=== PATIENT | male | born 1935 | race Caucasian/White ===

== ENCOUNTER 2016-04-11 19:39 | Inpatient (IN) | payer MEDICARE, MEDICAID ==
[~2016-04-11] VITALS: Ht 172.7 cm; Wt 57.2 kg
[2016-04-11 20:10] LABS: BASOPHILS % (AUTO) 0.5 % (0.0-2.0); EOSINOPHILS % (AUTO) 0.2 % (0.0-3.0); LYMPHOCYTES % (AUTO) 11.8 % (20.0-45.0); MEAN CORPUSCULAR HEMOGLOBIN 32.3 PG (27.0-31.0); MEAN CORPUSCULAR HGB CONC 32.8 G/DL (32.0-36.0); MEAN CORPUSCULAR VOLUME 98 FL (80-99); MEAN PLATELET VOLUME 5.6 FL (6.5-10.1); MONOCYTES % (AUTO) 6.3 % (1.0-10.0); NEUTROPHILS % (AUTO) 81.3 % (45.0-75.0); PLATELET COUNT 270 K/UL (150-450); RED BLOOD COUNT 4.25 M/UL (4.70-6.10); RED CELL DISTRIBUTION WIDTH 12.1 % (11.6-14.8); WHITE BLOOD COUNT 11.5 K/UL (4.8-10.8)
[2016-04-11 20:34] LABS: TROPONIN I < 0.30 ng/mL (<=0.30)
[2016-04-11 20:37] LABS: ACETAMINOPHEN < 10 ug/mL (10-30); ALANINE AMINOTRANSFERASE 5 U/L (3-41); ALBUMIN/GLOBULIN RATIO 0.7 (1.0-2.7); ALCOHOL < 10 mg/dL; ANION GAP 17 (5-15); ASPARTATE AMINO TRANSFERASE 28 U/L (5-40); CALCIUM 9.5 mg/dL (8.6-10.2); CARBON DIOXIDE 23 mEQ/L (20-30); CHLORIDE 102 mEQ/L (98-107); CREATININE 1.3 mg/dL (0.7-1.2); HEMOLYSIS 115; POTASSIUM 5.9 mEQ/L (3.4-4.9); SODIUM 142 mEQ/L (135-145); TOTAL PROTEIN 8.9 g/dL (6.6-8.7)
[2016-04-11 20:40] LABS: REFLEX LACTIC ACID YES OR NO YES
--- NOTE | 2016-04-11 21:34 | Emergency Room Report ---
History of Present Illness General Chief Complaint: Altered Level of Consciousness Source: Medical Record, EMS Present Illness HPI Patient had a period of unresponsiveness where he was was unable to speak for about half an hour that occurred on 7 PM tonight. Apparently he has a history of dementia. Usually he is responsive. Glucose in the field was normal. Also he was hypotensive. There is no observed seizure activity at that time. Patient's mentation improved on transport, but still perseveration but verbalizes. Wheelchair bound. H/O schizophrenia and dementia. No other history is available. Allergies: Coded Allergies: UNABLE TO ASSESS (Unverified , 04/11/16) Patient History Limited by: medical condition Past Medical History: see triage record Social History Narrative SNF Nursing Documentation-PMH Past Medical History: No History, Except For Hx COPD: Yes Hx Gastrointestinal Problems: Yes - GERD Hx Dialysis: No - CKD History Of Psychiatric Problem: Yes - Dementia, Parkinson, SCZ Review of Systems All Other Systems: limited Physical Exam Vital Signs Date Time Temp Pulse Resp B/P Pulse Ox O2 Delivery O2 Flow Rate FiO2 04/11/16 19:36 98.1 90 18 123/79 98 Room Air Sp02 EP Interpretation: reviewed, normal General Appearance: thin, Chronically Ill Head: normocephalic Eyes: bilateral eye PERRL, bilateral eye normal inspection ENT: moist mucus membranes - drolling Neck: supple Respiratory: lungs clear, normal breath sounds Cardiovascular #1: regular rate, rhythm Cardiovascular #2: 2+ radial (R) Gastrointestinal: normal inspection, normal bowel sounds, non tender, no mass, non-distended Musculoskeletal: back normal, other - atrophy Neurologic: alert, responsive, DTRs symmetric, sensory intact, motor weakness - bilateral LE, Babinski Psychiatric: depressed affect Skin: normal inspection, warm/dry Medical Decision Making Diagnostic Impression: Primary Impression: Altered level of consciousness Additional Impression: UTI (urinary tract infection) Qualified Codes: N30.00 - Acute cystitis without hematuria ER Course Patient presents with period of decreased responsiveness. Complicated as patient with underlying dementia. DDx: electrolyte abnormality, seizure, occult infection, AMI amongst others. Emergent evaluation with labs, EKG, CT, UA. Treatment with hydration and cardiac monitoring. Labs remarkable for UTI, renal insufficiency, slightly elevated potassium. CT with atrophy. CXR with prior rib fractures. IV hydration, antibiotics initiated. Mentation improved somewhat. Admit tele Dr. Shelton. Laboratory Tests Test 04/11/16 19:52 04/11/16 21:30 04/11/16 21:50 04/11/16 22:00 White Blood Count 11.5 K/UL (4.8-10.8) H Red Blood Count 4.25 M/UL (4.70-6.10) L Hemoglobin 13.7 G/DL (14.2-18.0) L Hematocrit 41.8 % (42.0-52.0) L Mean Corpuscular Volume 98 FL (80-99) Mean Corpuscular Hemoglobin 32.3 PG (27.0-31.0) H Mean Corpuscular Hemoglobin Concent 32.8 G/DL (32.0-36.0) Red Cell Distribution Width 12.1 % (11.6-14.8) Platelet Count 270 K/UL (150-450) Mean Platelet Volume 5.6 FL (6.5-10.1) L Neutrophils (%) (Auto) 81.3 % (45.0-75.0) H Lymphocytes (%) (Auto) 11.8 % (20.0-45.0) L Monocytes (%) (Auto) 6.3 % (1.0-10.0) Eosinophils (%) (Auto) 0.2 % (0.0-3.0) Basophils (%) (Auto) 0.5 % (0.0-2.0) Sodium Level 142 mEQ/L (135-145) Potassium Level 5.9 mEQ/L (3.4-4.9) H Chloride Level 102 mEQ/L (98-107) Carbon Dioxide Level 23 mEQ/L (20-30) Anion Gap 17 (5-15) H Blood Urea Nitrogen 42 mg/dL (7-23) H Creatinine 1.3 mg/dL (0.7-1.2) H Estimate Glomerular Filtration Rate mL/min (>60) Glucose Level 131 mg/dL (74-106) H Lactic Acid Level 2.00 mmol/L (0.66-2.22) 1.90 mmol/L (0.66-2.22) Calcium Level 9.5 mg/dL (8.6-10.2) Total Bilirubin 0.3 mg/dL (0.0-1.2) Aspartate Amino Transferase (AST) 28 U/L (5-40) Alanine Aminotransferase (ALT) 5 U/L (3-41) Alkaline Phosphatase 50 U/L (40-129) Total Creatine Kinase 49 U/L (38-174) Troponin I < 0.30 ng/mL (<=0.30) Total Protein 8.9 g/dL (6.6-8.7) H Albumin 3.7 g/dL (3.5-5.2) Globulin 5.2 g/dL Albumin/Globulin Ratio 0.7 (1.0-2.7) L Salicylates Level < 1 mg/dL (10-30) L Acetaminophen Level < 10 ug/mL (10-30) L Serum Alcohol < 10 mg/dL Ammonia 139 umol/L (16-60) H Urine Color Pale yellow Urine Appearance Cloudy Urine pH 9 (4.5-8.0) Urine Specific [place] 1.015 (1.005-1.035) Urine Protein 3+ (NEGATIVE) H Urine Glucose (UA) Negative (NEGATIVE) Urine Ketones Negative (NEGATIVE) Urine Occult Blood 5+ (NEGATIVE) H Urine Nitrite Negative (NEGATIVE) Urine Bilirubin Negative (NEGATIVE) Urine Urobilinogen Normal MG/DL (0.0-1.0) Urine Leukocyte Esterase 3+ (NEGATIVE) H Urine RBC Tntc /HPF (0 - 0) H Urine WBC Tntc /HPF (0 - 0) H Urine Squamous Epithelial Cells None /LPF (NONE/OCC) Urine Bacteria Many /HPF (NONE) H Urine Opiates Screen Negative (NEGATIVE) Urine Barbiturates Screen Negative (NEGATIVE) Phencyclidine (PCP) Screen Negative (NEGATIVE) Urine Amphetamines Screen Negative (NEGATIVE) Urine Benzodiazepines Screen Negative (NEGATIVE) Urine Cocaine Screen Negative (NEGATIVE) Urine Marijuana (THC) Screen Negative (NEGATIVE) EKG Diagnostic Results Rate: normal Rhythm: NSR ST Segments: no acute changes Rhythm Strip Diag. Results EP Interpretation: yes Rhythm: NSR, no PVC's, no ectopy Chest X-Ray Diagnostic Results EP Interpretation: Yes Findings: no consolidation, no effusion, no pneumothorax, no acute cardiopulmonary disease, other - rib fx R old - lung nodule Number of Views: 1 CT/MRI/US Diagnostic Results CT/MRI/US Diagnostic Results : Imaging Test Ordered: head Impression atrophy IMPRESSION: No evidence of acute intracranial pathology , unchanged. Bilateral cerebral periventricular white matter low attenuation, nonspecific, likely chronic microvascular ischemic in nature Atrophy Status: improved Disposition: ADMITTED INPATIENT Condition: Serious Referrals: NON PHYSICIAN (PCP) Daniel Bella M.D. Apr 11, 2016 21:34
[2016-04-11 22:27] LABS: APPEARANCE,URINE CLOUDY; KETONES,URINE NEGATIVE (NEGATIVE); LEUKOCYTE ESTERASE ,URINE 3+ (NEGATIVE); NITRITE,URINE NEGATIVE (NEGATIVE); PH,URINE 9 (4.5-8.0); PROTEIN,URINE 3+ (NEGATIVE); UROBILINOGEN,URINE NORMAL MG/DL (0.0-1.0)
[2016-04-11 22:44] LABS: BACTERIA,URINE MANY /HPF; RBC,URINE TNTC /HPF (0 - 0); WBC,URINE TNTC /HPF (0 - 0)
[2016-04-11 23:15] VITALS: BP 111/57
[2016-04-11] MEDS ORDERED: cefTRIAXone 1 GM in NS 55 ML IVPB ONE (23:15)
[2016-04-12] VITALS (8 sets, daily range): BP systolic 102–132; BP diastolic 50–83
[2016-04-12] MEDS ORDERED: NS 55 ML IV ONE (00:06)
[2016-04-12] MEDS ORDERED: Tubing IV Secondary IV ONE (00:06)
[2016-04-12] MEDS ORDERED: CRANBERRY400 MG PO (00:24)
[2016-04-12] MEDS ORDERED: TRAMADOL HCL50 MG ORAL (00:24)
[2016-04-12] MEDS ORDERED: ZYRTEC10 MG ORAL (00:24)
[2016-04-12] MEDS ORDERED: DEPAKOTE ER500 MG ORAL (00:24)
[2016-04-12] MEDS ORDERED: SINEMET 25-1001 EAC1 ORAL (00:24)
[2016-04-12] MEDS ORDERED: MILK OF MA400 MG/51 ORAL (00:24)
[2016-04-12] MEDS ORDERED: TYLENOL EXTRA500 MG ORAL (00:24)
[2016-04-12] MEDS ORDERED: Milk of Magnesia 30ml Ud ORAL PRN (04:45)
[2016-04-12] MEDS ORDERED: traMADol 50mg tab ORAL PRN (04:45)
[2016-04-12 08:02] LABS: BASOPHILS % (AUTO) 0.3 % (0.0-2.0); EOSINOPHILS % (AUTO) 0.3 % (0.0-3.0); LYMPHOCYTES % (AUTO) 16.9 % (20.0-45.0); MEAN CORPUSCULAR HEMOGLOBIN 31.9 PG (27.0-31.0); MEAN CORPUSCULAR HGB CONC 32.7 G/DL (32.0-36.0); MEAN CORPUSCULAR VOLUME 98 FL (80-99); MEAN PLATELET VOLUME 6.2 FL (6.5-10.1); MONOCYTES % (AUTO) 11.2 % (1.0-10.0); NEUTROPHILS % (AUTO) 71.3 % (45.0-75.0); PLATELET COUNT 206 K/UL (150-450); RED BLOOD COUNT 3.74 M/UL (4.70-6.10); RED CELL DISTRIBUTION WIDTH 12.1 % (11.6-14.8); WHITE BLOOD COUNT 8.6 K/UL (4.8-10.8)
--- NOTE | 2016-04-12 08:07 | History and Physical Report ---
DATE OF ADMISSION: 04/11/2016 CHIEF COMPLAINT: Altered level of consciousness. History Of Present Illness: This is an 80-year-old male, who is a resident of a [facility]. The patient was transferred to this hospital by paramedics due to altered level of consciousness. The patient is a very poor historian. I was asked to take care of the patient's attending physician, Dr. Gill Saunders to while he is in [place]. PAST MEDICAL HISTORY: 1. Organic brain syndrome. 2. Chronic obstructive pulmonary disease. 3. Recurrent falls. 4. Chronic kidney disease, unspecified. 5. Tachycardia, nonspecific. 6. Anemia, nonspecific. 7. History of schizophrenia. 8. Gastroesophageal reflux disease. 9. Parkinson. 10. Urinary tract infection. HOME MEDICATIONS: Depakote, Tylenol p.r.n., milk of magnesia p.r.n., Sinemet, Ultram p.r.n. and Zyrtec. ALLERGIES: No known drug allergies. SOCIAL HISTORY: Unable to obtain. FAMILY HISTORY: Unable to obtain. REVIEW OF SYSTEMS: Unable to obtain. PHYSICAL EXAMINATION: GENERAL: This is an elderly male, who is in no acute distress. VITAL SIGNS: Blood pressure 127/83, pulse 89, apical, and temperature 97.3 degrees oral. HEENT: The head is normocephalic and atraumatic. Pupils are equal, round, reactive to light and accommodation consensually. NECK: Supple. Trachea is midline. There was no lymphadenopathy or thyromegaly. LUNGS: Clear to auscultation and percussion. HEART: Regular rate and rhythm without rubs, murmurs, or gallops. ABDOMEN: Soft and nontender. Bowel sounds were active. EXTREMITIES: No clubbing, cyanosis, or edema. NEUROLOGIC: The patient is confused. He has increased alpha rigidity in all extremities. There were no lateralizing signs. LABORATORY AND ANCILLARY DATA: CBC shows white count of 11,500. Serum creatinine is 3, sodium 142, potassium 5.9, BUN 42, creatinine 1.3. Lactic acid 2. Ammonia level 139. Urine toxicology screen is negative. Urinalysis too numerous to count red blood cells, too numerous to count white blood cells, and many bacteria. ASSESSMENT: 1. Urinary tract infection.Organic brain syndrome. 2. Chronic obstructive pulmonary disease. 3. Recurrent falls. 4. Chronic kidney disease, unspecified. 5. Tachycardia, nonspecific. 6. Anemia, nonspecific. 7. History of schizophrenia. 8. Gastroesophageal reflux disease. 9. Parkinson. 10. Urinary tract infection. PLAN: 1. Urine culture and sensitivity. 2. IV antibiotics. 3. IV fluids. 4. Discontinue mood altering medications. Joan Shelton M.D. DR: Renee JOB#: [id number] CC: RACHAEL
[2016-04-12] MEDS: Sinemet 25/100 tab ORAL SCH ×3 (08:26→17:35)
[2016-04-12] MEDS: Depakote ER 500mg tab ORAL SCH ×2 (08:26→20:32)
[2016-04-12] MEDS: Heparin 5000 units/ml inj SUBQ SCH ×2 (08:31→20:34)
--- NOTE | 2016-04-12 10:45 | Diagnostic Imaging Report ---
Indications: Altered level of consciousness Technique: Continuous helical CT imaging of the brain was performed with nonionic exposure control on a Siemens sensation [address] scanner. Axial and coronal images were reconstructed at 5 mm slice thickness and interval. CTDI volume(s): 70 mGy Total DLP: 1471 mGy-cm Findings: Comparison: None Confluent low attenuation is present in the bilateral periventricular white matter. Ventricles, cisterns, and sulci are diffusely prominent. No evidence of mass or hemorrhage, mass effect, midline shift, hydrocephalus, or increased intracranial pressure. Bone window images are unremarkable. Visualized paranasal sinuses and mastoid air cells are clear. IMPRESSION: No evidence of acute intracranial pathology , unchanged. Bilateral cerebral periventricular white matter low attenuation, nonspecific, likely chronic microvascular ischemic in nature Atrophy This correlates with preliminary report generated overnight by Dr. Perera. The CT scanner at [facility] is accredited by the [employer] and the scans are performed using protocols designed to limit radiation exposure to as low as reasonably achievable to attain images of sufficient resolution adequate for diagnostic evaluation.
--- NOTE | 2016-04-12 14:00 | Diagnostic Imaging Report ---
Indication: Shortness of breath Technique: Single portable AP view of the chest. Findings: Comparison: None. Calcified nodule left midlung. The bones and extra pulmonary soft tissues, cardiomediastinal silhouette, pulmonary vasculature and parenchyma, and pleural surfaces are otherwise unremarkable. IMPRESSION: Small left midlung nodule, likely but not definitely calcified granuloma. Recommend comparison to prior outside chest cigarettes. Otherwise negative portable AP chest.
[2016-04-12 16:45] LABS: ANION GAP 15 (5-15); CALCIUM 8.9 mg/dL (8.6-10.2); CARBON DIOXIDE 23 mEQ/L (20-30); CHLORIDE 109 mEQ/L (98-107); CREATININE 1.1 mg/dL (0.7-1.2); HEMOLYSIS 6; POTASSIUM 4.5 mEQ/L (3.4-4.9); SODIUM 147 mEQ/L (135-145)
--- NOTE | 2016-04-12 18:03 | Cardiology Report ---
APPROVED REPORT EKG Measurement Heart [id number] Sinus rhythm Baseline artifact Recommend, repeat ECG
[2016-04-12] MEDS: cefTRIAXone 1gm/D5W 55ml IVPB SCH ×2 (22:00)
[2016-04-13 00:13] VITALS: BP 110/65
[2016-04-13 04:10] VITALS: BP 108/67
[2016-04-13 08:00] VITALS: BP 110/65
[2016-04-13] MEDS: Depakote ER 500mg tab ORAL SCH ×2 (08:52→21:38)
[2016-04-13] MEDS: Sinemet 25/100 tab ORAL SCH ×3 (08:52→18:05)
[2016-04-13] MEDS: Heparin 5000 units/ml inj SUBQ SCH ×2 (08:53→21:38)
--- NOTE | 2016-04-13 09:15 | General Progress Note ---
Assessment/Plan Assessment/Plan A/P 1) Hypernatremia 2) UTI 3) COPD 4) organic brain syndrome 5) CKD 6) Anemia 7) Parkinson Plan change IVF to D5W urine Cx--pending lab in AM Discussed with RN Subjective Allergies: Coded Allergies: UNABLE TO ASSESS (Unverified , 04/11/16) Subjective No acute event. Denies any c/o Objective Last 24 Hour Vital Signs Date Time Temp Pulse Resp B/P Pulse Ox O2 Delivery O2 Flow Rate FiO2 04/13/16 04:10 98.4 79 20 108/67 97 Nasal Cannula 4.0 04/13/16 04:00 78 04/13/16 00:13 98.7 77 19 110/65 95 Nasal Cannula 4.0 04/13/16 00:00 76 04/12/16 20:09 96.8 85 14 116/76 98 Nasal Cannula 4.0 04/12/16 20:00 88 04/12/16 16:00 91 04/12/16 16:00 97.0 91 15 118/78 Nasal Cannula 4.0 04/12/16 12:09 97.0 84 20 119/67 100 Nasal Cannula 3.0 04/12/16 12:00 72 Intake and Output 04/12/16 04/13/16 19:00 07:00 Intake Total 900 ml 765 ml Balance 900 ml 765 ml Intake Oral 120 ml 50 ml IV Total 780 ml 715 ml # Voids 3 5 Height (Feet): 5 Height (Inches): 8.00 Weight (Pounds): 126 Objective NAD, AAOx2 CTA b/l,no rales, no rhonchi S1,S2,RRR,no M/R/G soft, non tender, BS+ no edema ÁSNCHEZ,STEFANI Apr 13, 2016 09:15
[2016-04-13 12:30] VITALS: BP 106/60
[2016-04-13 16:00] VITALS: BP 107/59
[2016-04-13] MEDS ORDERED: Tubing IV Secondary IV ONE (16:12)
[2016-04-13] MEDS ORDERED: 1/2 NS 1000ml IV ONE (16:12)
[2016-04-13 20:00] VITALS: BP 113/67
[2016-04-13] MEDS: cefTRIAXone 1gm/D5W 55ml IVPB SCH ×2 (22:52)
[2016-04-14] VITALS: BP 124/77
[2016-04-14 04:00] VITALS: BP 114/67
[2016-04-14 08:00] VITALS: BP 133/90
[2016-04-14 08:09] LABS: BASOPHILS % (AUTO) 0.8 % (0.0-2.0); EOSINOPHILS % (AUTO) 1.6 % (0.0-3.0); LYMPHOCYTES % (AUTO) 35.7 % (20.0-45.0); MEAN CORPUSCULAR VOLUME 100 FL (80-99); MONOCYTES % (AUTO) 9.4 % (1.0-10.0); NEUTROPHILS % (AUTO) 52.5 % (45.0-75.0); PLATELET COUNT 208 K/UL (150-450); RED CELL DISTRIBUTION WIDTH 11.4 % (11.6-14.8)
[2016-04-14 08:44] LABS: ANION GAP 16 (5-15); CALCIUM 8.7 mg/dL (8.6-10.2); CARBON DIOXIDE 22 mEQ/L (20-30); CHLORIDE 103 mEQ/L (98-107); CREATININE 0.9 mg/dL (0.7-1.2); HEMOLYSIS 5; POTASSIUM 4.6 mEQ/L (3.4-4.9); SODIUM 141 mEQ/L (135-145)
[2016-04-14] MEDS: Heparin 5000 units/ml inj SUBQ SCH ×2 (09:00→21:14)
[2016-04-14] MEDS: Depakote ER 500mg tab ORAL SCH ×2 (09:58→21:13)
[2016-04-14] MEDS: Sinemet 25/100 tab ORAL SCH ×3 (10:00→18:18)
--- NOTE | 2016-04-14 11:10 | General Progress Note ---
Assessment/Plan Assessment/Plan A/P 1) Hypernatremia--resolved 2) UTI 3) COPD 4) organic brain syndrome 5) CKD 6) Anemia 7) Parkinson Plan continue IVF urine Cx--pending lab in AM Discussed with RN Subjective Allergies: Coded Allergies: UNABLE TO ASSESS (Unverified , 04/11/16) Subjective No acute event. Denies any c/o. c/o "I am hungry" Objective Last 24 Hour Vital Signs Date Time Temp Pulse Resp B/P Pulse Ox O2 Delivery O2 Flow Rate FiO2 04/14/16 08:00 97.6 89 20 133/90 96 Nasal Cannula 2.0 04/14/16 04:00 97.0 63 18 114/67 95 Nasal Cannula 2.0 04/14/16 03:48 72 04/14/16 00:00 98.2 79 20 124/77 90 Room Air 04/13/16 23:44 74 04/13/16 20:30 71 04/13/16 20:00 97.4 77 16 113/67 99 Nasal Cannula 2.0 04/13/16 16:00 75 04/13/16 16:00 97.0 70 20 107/59 100 Nasal Cannula 6.0 04/13/16 12:30 97.8 70 20 106/60 100 Nasal Cannula 2.0 04/13/16 12:00 78 Intake and Output 04/13/16 04/14/16 19:00 07:00 Intake Total 1765 ml 830 ml Output Total 400 ml Balance 1765 ml 430 ml Intake Oral 970 ml IV Total 795 ml 830 ml Stool Total 400 ml # Voids 2 2 # Bowel Movements 1 Laboratory Tests 04/14/16 06:10: White Blood Count 7.0, Red Blood Count 3.80L, Hemoglobin 12.2L, Hematocrit 38.0L , Mean Corpuscular Volume 100H, Mean Corpuscular Hemoglobin 32.0H, Mean Corpuscular Hemoglobin Concent 32.0, Red Cell Distribution Width 11.4L, Platelet Count 208, Mean Platelet Volume 6.0L, Neutrophils (%) (Auto) 52.5, Lymphocytes (%) (Auto) 35.7, Monocytes (%) (Auto) 9.4, Eosinophils (%) (Auto) 1.6, Basophils (%) (Auto) 0.8, Sodium Level 141, Potassium Level 4.6, Chloride Level 103, Carbon Dioxide Level 22, Anion Gap 16H, Blood Urea Nitrogen 28H, Creatinine 0.9, Estimat Glomerular Filtration Rate , Glucose Level 80, Calcium Level 8.7 Height (Feet): 5 Height (Inches): 8.00 Weight (Pounds): 126 Objective NAD, AAOx2 CTA b/l,no rales, no rhonchi S1,S2,RRR,no M/R/G soft, non tender, BS+ no edema SÁNCHEZ,STEFANI Apr 14, 2016 11:10
[2016-04-14 12:00] VITALS: BP 116/77
[2016-04-14 16:00] VITALS: BP 127/73
[2016-04-14 20:00] VITALS: BP 124/70
[2016-04-14] MEDS ORDERED: Tamsulosin 0.4mg cap ORAL SCH (21:00)
[2016-04-14] MEDS ORDERED: Metoprolol 50mg tab ORAL SCH (21:00)
[2016-04-14] MEDS ORDERED: Heparin 5000 units/ml inj SUBQ SCH (21:00)
[2016-04-14] MEDS ORDERED: HydrALAZINE 25mg tab ORAL SCH (22:00)
[2016-04-14] MEDS: cefTRIAXone 1gm/D5W 55ml IVPB SCH ×2 (22:22)
[2016-04-15] VITALS: BP 113/57
[2016-04-15 04:00] VITALS: BP 98/67
[2016-04-15 07:49] LABS: BASOPHILS % (AUTO) 0.7 % (0.0-2.0); EOSINOPHILS % (AUTO) 2.1 % (0.0-3.0); LYMPHOCYTES % (AUTO) 18.4 % (20.0-45.0); MEAN CORPUSCULAR HEMOGLOBIN 32.6 PG (27.0-31.0); MEAN CORPUSCULAR HGB CONC 32.5 G/DL (32.0-36.0); MEAN CORPUSCULAR VOLUME 100 FL (80-99); MEAN PLATELET VOLUME 5.9 FL (6.5-10.1); MONOCYTES % (AUTO) 9.3 % (1.0-10.0); NEUTROPHILS % (AUTO) 69.6 % (45.0-75.0); PLATELET COUNT 189 K/UL (150-450); RED BLOOD COUNT 3.62 M/UL (4.70-6.10); RED CELL DISTRIBUTION WIDTH 11.1 % (11.6-14.8); WHITE BLOOD COUNT 8.2 K/UL (4.8-10.8)
[2016-04-15 08:26] LABS: ANION GAP 16 (5-15); CALCIUM 8.9 mg/dL (8.6-10.2); CARBON DIOXIDE 24 mEQ/L (20-30); CHLORIDE 97 mEQ/L (98-107); CREATININE 0.9 mg/dL (0.7-1.2); HEMOLYSIS 7; POTASSIUM 4.5 mEQ/L (3.4-4.9); SODIUM 137 mEQ/L (135-145)
--- NOTE | 2016-04-15 08:51 | General Progress Note ---
Assessment/Plan Assessment/Plan m/p UTi urine cultures not properly collected. Clinically better. DC to SNF. Subjective Allergies: Coded Allergies: UNABLE TO ASSESS (Unverified , 04/11/16) Subjective More alert Objective Last 24 Hour Vital Signs Date Time Temp Pulse Resp B/P Pulse Ox O2 Delivery O2 Flow Rate FiO2 04/15/16 04:00 97.0 77 21 98/67 96 Nasal Cannula 2.0 04/15/16 04:00 72 04/15/16 00:00 69 04/15/16 00:00 97.0 72 20 113/57 96 Nasal Cannula 2.0 04/14/16 20:00 72 04/14/16 20:00 97.0 92 20 124/70 95 04/14/16 16:00 96.8 94 20 127/73 97 04/14/16 16:00 78 04/14/16 12:00 97.4 76 16 116/77 99 Nasal Cannula 2.0 04/14/16 11:39 89 Intake and Output 04/14/16 04/15/16 19:00 07:00 Intake Total 830 ml 970 ml Output Total 150 ml 150 ml Balance 680 ml 820 ml Intake Oral 350 ml 250 ml IV Total 480 ml 720 ml Stool Total 150 ml 150 ml # Voids 2 2 Laboratory Tests 04/15/16 06:25: White Blood Count 8.2, Red Blood Count 3.62L, Hemoglobin 11.8L, Hematocrit 36.3L , Mean Corpuscular Volume 100H, Mean Corpuscular Hemoglobin 32.6H, Mean Corpuscular Hemoglobin Concent 32.5, Red Cell Distribution Width 11.1L, Platelet Count 189, Mean Platelet Volume 5.9L, Neutrophils (%) (Auto) 69.6, Lymphocytes (%) (Auto) 18.4L, Monocytes (%) (Auto) 9.3, Eosinophils (%) (Auto) 2.1, Basophils (%) (Auto) 0.7, Sodium Level 137, Potassium Level 4.5, Chloride Level 97L, Carbon Dioxide Level 24, Anion Gap 16H, Blood Urea Nitrogen 22, Creatinine 0.9, Estimat Glomerular Filtration Rate , Glucose Level 81, Calcium Level 8.9 Height (Feet): 5 Height (Inches): 8.00 Weight (Pounds): 126 Objective Cv RR Lungs CTA Abd SNT BS + E No CCE SHECHTER,PAGIEL Apr 15, 2016 08:51
[2016-04-15] MEDS ORDERED: MOM30 ML ORAL (08:53)
[2016-04-15] MEDS ORDERED: DIVALPROEX SOD500 M2 ORAL (08:53)
[2016-04-15] MEDS ORDERED: SINEMET 25/1001 EA ORAL (08:53)
[2016-04-15] MEDS ORDERED: Digoxin 0.125mg tab ORAL SCH (09:00)
[2016-04-15] MEDS: Heparin 5000 units/ml inj SUBQ SCH (09:00)
[2016-04-15] MEDS: Depakote ER 500mg tab ORAL SCH (09:09)
[2016-04-15] MEDS: Sinemet 25/100 tab ORAL SCH (09:09)
[2016-04-15 09:19] VITALS: BP 115/64
[2016-04-15 11:32] VITALS: BP 101/63
--- NOTE | 2016-04-16 13:18 | Discharge Summary ---
Discharge Summary Hospital Course Date of Admission Apr 11, 2016 at 21:21 Date of Discharge Apr 15, 2016 at 14:25 Admitting Diagnosis AMS HPI Jj Peguero is a 80 year old male who was admitted on Apr 11, 2016 at 21: 21 for Altered Mental Status Hospital Course dc summary#[id number] Discharge Medications New Medications: Divalproex Sodium (Divalproex Sodium Er) 500 Mg Tab.er.24h 500 MG ORAL EVERY 12 HOURS for 30 Days, TAB Levodopa/Carbidopa (Carbidopa-Levodopa 25-100 Tab) 1 Each Tablet 1 EA ORAL THREE TIMES A DAY for 30 Days, TAB Magnesium Hydroxide (Milk of Magnesia) 400 Mg/5 Ml Oral.susp 30 ML ORAL DAILYPRN PRN for 30 Days, #500 ML Discontinued Medications: Acetaminophen* (Tylenol Extra Strength*) 500 Mg Tablet 650 MG ORAL Q6H PRN for Mild Pain/Temp > 100.5, TAB 0 Refills Carbidopa/Levodopa 25-100 Mg* (Sinemet 25-100 Mg Tablet*) 1 Each Tablet 1 TAB ORAL THREE TIMES A DAY, TAB Cetirizine Hcl* (Zyrtec*) 10 Mg Tablet 10 MG ORAL DAILY, #30 TAB 0 Refills Cranberry (Cranberry) 400 Mg Capsule 450 MG PO, CAP Divalproex Sodium* (Depakote Er*) 500 Mg Tab.er.24h 500 MG ORAL EVERY 12 HOURS, TAB Magnesium Hydroxide* (Milk Of Magnesia*) 400 Mg/5 Ml Oral.susp 30 ML ORAL DAILY, ML Tramadol Hcl* (Ultram*) 50 Mg Tablet 50 MG ORAL Q6H PRN for For Pain, #30 TAB 0 Refills Discharge Condition Upon Discharge: improving Discharge Disposition Patient was discharged to SNF/Subacute Facility(03) Discharge Diagnoses: Discharge Instructions Discharge Instructions Special Instructions I have been assigned to complete a D/C Summary on this account. I was not involved in the patient management Fouzia Alas NP (Vanchtein) Apr 16, 2016 13:18
--- NOTE | 2016-04-17 06:37 | Discharge Summary 2 SIG ---
DATE OF ADMISSION: 04/11/2016 DATE OF DISCHARGE: 04/15/2016 REASON FOR ADMISSION: 80-year-old male, presented to emergency department from the shelter facility due to the period of unresponsiveness. He was unable to spoke for about half an hour at the shelter facility. The patient does has underlying history of dementia but usually , at baseline, more responsive. The nursing staff sent the patient for evaluation to emergency department. Blood sugar in the field was within normal limits. The patient on presentation was hypotensive. No observed seizure activity. In the emergency department, laboratory workup revealed mild leukocytosis. The patient was afebrile. CT of the head was negative for any acute intracranial pathology. Urinalysis revealed evidence of urinary tract infection. Potassium was elevated of 5.9, BUN 42, and creatinine 1.2. Troponin was negative. Toxicology screen was negative. Chest x-ray revealed old rib fracture. No acute cardiopulmonary disease. Hyperkalemia was treated. The patient was started on IV fluids and empiric antibiotics and transferred to the floor for further management. ADMITTING DIAGNOSES: 1. Altered level of consciousness. 2. Urinary tract infection. 3. Hyperkalemia. 4. Acute kidney injury , possible chronic kidney disease. 5. Chronic obstructive pulmonary disease. 6. Parkinson disease. HOSPITAL STAY: The patient was admitted to the floor. The patient was on IV fluids and IV antibiotics. Urine culture revealed mixed urogenital contaminants likely inappropriate urine collection per primary doctor suggestion. The patient will be continued on antibiotics upon discharge to facility . Potassium was stable after treatment. Renal parameters down to normal after IV hydration. Acute kidney injury, likely secondary to dehydration. Mental status at baseline, the patient was alert and was able to respond to the questions. Anemia mild , at baseline. No trend down. Period of unresponsiveness with acute encephalopathy likely secondary to urinary tract infection, which was resolved. CXR negative, pulse oximetry stable on room air, no clinical evidence of COPD exacerbation. Stable cardiopulmonary status. The patient was stable for transfer to shelter facility. DISCHARGE DIAGNOSES: 1. Acute metabolic encephalopathy likely secondary to infectious process, -resolved. 2. Urinary tract infection. 3. Acute kidney injury, likely secondary to dehydration - resolved. 4. Dehydration. 5. Hyperkalemia, resolved. 6. Chronic obstructive pulmonary disease, stable. 7. Parkinson disease. 8. Anemia of chronic disease, stable. DISCHARGE MEDICATIONS: See medication reconciliation list. DISCHARGE INSTRUCTIONS: The patient was discharged to shelter facility. FOLLOWUP: Follow up with medical doctor at the facility. Continue antibiotics as prescribed. Closely monitor for any signs of worsening mental status , for recurrence of urinary tract infection. Monitor renal parameters and hemoglobin and hematocrit. Joan Shelton M.D. I have been assigned to dictate discharge summary on this account and I was not involved in the patient's management. Fouzia Alas (lew NCarmeloPCarmelo DR: TONEY JOB#: [id number] CC: RACHAEL
== END 2016-04-15 14:25 | DRG 689 ==
LOC: ENRESERVTM → ENRESERVDT → EDBD 19:39 → EMR 21:19 → 2E 21:21 → EDBEDREQ 04-12 00:22
DX: N39.0 Urinary tract infection, site not specified (principal); G93.41 Metabolic encephalopathy; N17.9 Acute kidney failure, unspecified; E87.0 Hyperosmolality and hypernatremia; J44.9 Chronic obstructive pulmonary disease, unspecified; G20 Parkinson's disease; F09 Unspecified mental disorder due to known physiological condition; N18.9 Chronic kidney disease, unspecified; E86.0 Dehydration; E87.5 Hyperkalemia; D63.8 Anemia in other chronic diseases classified elsewhere; K21.9 Gastro-esophageal reflux disease without esophagitis
CPT/HCPCS: 36415; 70450; 71010; 80048; 80053; 80300; 80329; 81003; 82140; 82550; 82962; 83605; 84484; 85025; 87081; 87086; 93005